=== PATIENT | male | born 1955 | race Caucasian/White ===

== ENCOUNTER 2018-04-29 20:12 | Emergency (ER) | payer OTHER ==
[2018-04-29 21:17] LABS: ABSOLUTE BASOPHIL COUNT 0 /CUMM (0.0-0.2); ABSOLUTE EOSINOPHIL COUNT 0.1 /CUMM (0.0-0.7); ABSOLUTE GRANULOCYTE CT 4.2 /CUMM (1.4-6.5); ABSOLUTE LYMPH COUNT 1.7 /CUMM (1.2-3.4); ABSOLUTE MONOCYTE COUNT 0.4 /CUMM (0.10-0.60); BASOPHIL % 0.3 % (0.0-2.0); EOSINOPHIL % 1.9 % (0-5); GRANULOCYTE % 64.6 % (42.2-75.2); HEMATOCRIT 46.2 % (42-52); MEAN CORPUSCULAR HGB 31.2 PG (27.0-31.0); MEAN CORPUSCULAR HGB CONC 33.8 G/DL (33.0-37.0); MEAN CORPUSCULAR VOLUME 92.2 FL (80.0-94.0); PLATELET COUNT 169 /CUMM (130-400); RBC DISTRIBUTION WIDTH 12.9 % (11.5-14.5); RED BLOOD CELL CT 5.01 /CUMM (4.70-6.10); WHITE BLOOD CELL COUNT 6.4 /CUMM (4.8-10.8)
--- NOTE | 2018-04-30 00:10 | ED GI/GU/ABDOMINAL COMPLAINT ---
History of Present Illness General Chief Complaint: Abdominal Pain/Flank Pain Stated Complaint: "A MY STOMACH, VERY BAD PAIN" Source: patient Exam Limitations: no limitations Vital Signs & Intake/Output Vital Signs & Intake/Output Vital Signs Date Time Temp Pulse Resp B/P B/P Pulse O2 O2 Flow FiO2 Mean Ox Delivery Rate 04/30 0024 98.0 55 18 152/82 96 Room Air 04/29 2032 97.3 84 18 190/90 98 Room Air Allergies Coded Allergies: No Known Allergies (04/29/18) Triage Note: 62M REPORTS SUDDEN ONSET OF SHART MID ABD PAIN SINCE 4PM. LAST BM THIS MORNING AND "THIN AND WEIRD". DENIES BLACK OR BLOODY STOOL. GENERALLY WELL APPEARING IN TRIAGE. DENIES CP/SOB/PALP Triage Nurses Notes Reviewed? yes Onset: Gradual Duration: gone now Timing: single episode today Quality/Severity: moderate Severity Numbers: 5 HPI: Patient is a 62-year-old male with a past medical history of hyperlipidemia who presents emergency room with concerns that after driving home from the gym IN A SEATED position he had gradual onset of periumbilical pain which the pain lasted approximately 4 hours where he states that during his wait in the emergency room that his symptoms have completely resolved. Patient did not take any medications for symptoms. Patient denies fever chills nausea vomiting abdominal pain Patient states that while waiting in the waiting room he is able tolerate by mouth denies any change in bowel habits denies any melena (Wyatt Maxwell) Past History Travel History Traveled to [place] past 21 day No Medical History Any Pertinent Medical History? none Cardiovascular: hyperlipidemia Surgical History Surgical History: non-contributory Psychosocial History What is your primary language Japanese Tobacco Use: Never used Family History Hx Contributory? No (Wyatt Maxwell) Review of Systems Review of Systems Constitutional: Reports: no symptoms. EENTM: Reports: no symptoms. Respiratory: Reports: no symptoms. Cardiovascular: Reports: no symptoms. GI: Reports: see HPI, abdominal pain. Genitourinary: Reports: no symptoms. Musculoskeletal: Reports: no symptoms. Skin: Reports: no symptoms. Neurological/Psychological: Reports: no symptoms. Hematologic/Endocrine: Reports: no symptoms. Immunologic/Allergic: Reports: no symptoms. All Other Systems: Reviewed and Negative (Wyatt Maxwell) Physical Exam Physical Exam General Appearance: no apparent distress, alert, comfortable Head: atraumatic Eyes: Bilateral: normal appearance. Ears, Nose, Throat, Mouth: moist mucous membrane Neck: normal inspection Respiratory: normal breath sounds, chest non-tender, no respiratory distress Cardiovascular: regular rate/rhythm Gastrointestinal: normal bowel sounds, soft, non-tender Extremities: normal range of motion Neurologic/Psych: no motor/sensory deficits, awake, alert Skin: intact, normal color, warm/dry Core Measures ACS in differential dx? No Sepsis Present: No Sepsis Focused Exam Completed? No (Maycol MYRICK,Wyatt) Progress Differential Diagnosis: AAA, AMI, appendicitis, biliary colic, bowel obstruction , colon cancer, cholecystitis, diverticulitis, epididymitis, esophageal varices, gastritis, hepatitis, hernia, hemorrhoids, ischemic bowel, inflamm bowel dis, Nohemy-Homar tear, orchitis, pancreatitis, prostatitis, peptic ulcer, PUD/GERD, perforated viscous, pyelonephritis, SBO, testicular torsion, ureterolithiasis, urinary retention, urethritis, UTI/pyelo Plan of Care: Orders Procedure Date/time Status URINALYSIS 04/30 0016 Active TROPONIN LEVEL 04/29 2016 Complete LIPASE 04/29 2016 Complete HEPATIC FUNCTION PANEL 04/29 2016 Complete CBC WITHOUT DIFFERENTIAL 04/29 2016 Complete BASIC METABOLIC PANEL 04/29 2016 Complete AMYLASE 04/29 2016 Complete EKG 04/29 2016 Active Laboratory Tests 04/29/18 2106: Anion Gap 11, Estimated GFR > 60, BUN/Creatinine Ratio 14.2, Glucose 109 H, Calcium 10.3 H, Total Bilirubin 1.7 H, Direct Bilirubin 0.1, AST 41, ALT 52, Alkaline Phosphatase 50, Troponin I 0.02, Total Protein 7.1, Albumin 4.4, Amylase 40, Lipase 40, CBC w Diff NO MAN DIFF REQ, RBC 5.01, MCV 92.2, MCH 31.2 H, MCHC 33.8, RDW 12.9, MPV 8.0, Gran % 64.6, Lymphocytes % 26.6, Monocytes % 6.6, Eosinophils % 1.9, Basophils % 0.3, Absolute Granulocytes 4.2, Absolute Lymphocytes 1.7, Absolute Monocytes 0.4, Absolute Eosinophils 0.1, Absolute Basophils 0 Patient currently is resting, but that no apparent distress walking around the emergency room patient had complete resolution of symptoms patient has nontender abdomen patient was advised to obtain urinalysis however patient states that he wanted to leave. Patient states he will follow up with his primary care doctor. Upon discharge patient looks well for distress and will comply with discharge instructions Discussed blood work with patient he has unremarkable labs No warranting of CT scan imaging due to patient's nontender abdomen Initial ED EKG: none (Wyatt Maxwell) Departure Departure Disposition: HOME OR SELF CARE Condition: Stable Clinical Impression Primary Impression: Abdominal pain Referrals: Simon Gonzalez MD (PCP/Family) Kale Harley MD Additional Instructions: As discussed if symptoms worsen or if you develop a new concerning symptom return to emergency him, begin a 24-hour clear liquid and bland diet. Follow-up with agate setter Dr. Harley this week if no better Departure Forms: Customer Survey General Discharge Information (Wyatt Maxwell) PA/JOB PLACEMENT SPECIALIST Co-Sign Statement Statement: ED Attending supervision documentation- [x] I have reviewed the ED Record and agree with the PA's/JOB PLACEMENT SPECIALIST's documentation. (Ada BARNETT,Emre Layton)
[2018-04-30 00:24] VITALS: BP 152/82
== END 2018-04-30 00:59 ==
LOC: ERH 20:12
PROVIDERS: Pediatrics
DX: R10.33 Periumbilical pain (principal)
CPT/HCPCS: 93005; 93010